=== PATIENT | male | born 1975 | race Caucasian/White ===

== ENCOUNTER 2023-05-19 10:16 | Emergency (ER) | payer OTHER ==
--- NOTE | 2023-05-19 10:21 | ED ---
General Adult HPI - General Chief complaint: Upper Respiratory Infection Stated complaint: SOB, Cough Time Seen by Provider: 05/19/23 10:19 Source: patient, RN notes reviewed Mode of arrival: ambulatory Limitations: no limitations - History of Present Illness Initial comments: This is a 48 year old male who presents to the emergency department for coughi ng, congestion, shortness of breath, fatigue, and headaches. Symptoms started 2 days ago. He is currently at [facility] for cocaine abuse. He states "I feel like there is fluid on my lungs". Denies any hx of asthma or COPD. - Related Data Home Medications Medication Instructions Recorded Confirmed Acetaminophen Tab [Tylenol] 650 mg PO Q4H PRN 05/19/23 05/19/23 Calcium/Magnesium/Zinc/Vitamin D 1 tab PO TID PRN 05/19/23 05/19/23 Chlorpheniramine Maleate 4 mg PO Q4H PRN 05/19/23 05/19/23 [Chlor-Trimeton] Ibuprofen [Motrin Ib] 600 mg PO Q6H PRN 05/19/23 05/19/23 Multivitamins, Thera [Multivitamin 1 tab PO DAILY 05/19/23 05/19/23 (formulary)] Thiamine [Vitamin B-1] 100 mg PO DAILY 05/19/23 05/19/23 guaiFENesin SYRUP 100MG/5ML 200 mg PO Q4HR PRN 05/19/23 05/19/23 [Robitussin] ondansetron HCL [Ondansetron HCl] 8 mg PO Q6H PRN 05/19/23 05/19/23 Previous Rx's Medication Instructions Recorded Albuterol Sulfate [Albuterol 1 - 2 puff PO Q4-6H PRN #8.5 gm 05/19/23 Sulfate Hfa] Benzonatate [Tessalon Perle] 200 mg PO TID PRN #30 capsule 05/19/23 Allergies Allergy/AdvReac Type Severity Reaction Status Date / Time No Known Allergies Allergy Verified 05/19/23 12:07 Review of Systems ROS Statement: Those systems with pertinent positive or pertinent negative responses have been documented in the HPI. ROS Other: All systems not noted in ROS Statement are negative. General Exam Limitations: no limitations General appearance: alert, in no apparent distress Head exam: Present: atraumatic, normocephalic, normal inspection Respiratory exam: Present: normal lung sounds bilaterally. Absent: respiratory distress, wheezes, rales, rhonchi, stridor Cardiovascular Exam: Present: regular rate, normal rhythm, normal heart sounds. Absent: systolic murmur, diastolic murmur, rubs, gallop, clicks Neurological exam: Present: alert, oriented X3, CN II-XII intact Psychiatric exam: Present: normal affect, normal mood Skin exam: Present: warm, dry, intact, normal color. Absent: rash Course Vital Signs 05/19/23 05/19/23 10:21 13:52 Temperature 99.6 F 98.8 F Pulse Rate 64 70 Respiratory 18 20 Rate Blood Pressure 123/81 111/75 O2 Sat by Pulse 98 97 Oximetry Medical Decision Making - Medical Decision Making This is a 48 year old male who presents to the emergency department for coughing and congestion. Was pt. sent in by a medical professional or institution? @ -No Did you speak to anyone other than the patient for history? @ -No Did you review nursing and triage notes? @ -Yes, and I agree, it is accurate with regards to the patient's symptoms. Were old charts reviewed? @ -No Differential Diagnosis? @ -Differential Cough: Influenza, Covid, RSV, croup, allergic rhinitis, GERD, pneumonia, bronchitis, COPD, viral pharyngitis, streptococcal pharyngitis, this is not meant to be an all-inclusive list. EKG interpreted by me (3pts min.)? @ -Not obtained X-rays interpreted by me (1pt min.)? @ -Chest x-ray obtained, my interpretation identifies no localized consolidations or infiltrates. CT interpreted by me (1pt min.)? @ -Not obtained U/S interpreted by me (1pt. min.)? @ -Not obtained What testing was considered but not performed? (CT, X-rays, U/S, labs)? Why? @ -None What meds were considered but not given? Why? @ -None Did you discuss the management of the patient with other professionals? @ -No Did you reconcile home meds? @ -No Was smoking cessation discussed for >3mins.? @ -I discussed smoking cessation for greater than 3 minutes. The risk of smoking were discussed with the patient including but not limited to risks of cancer, stroke, coronary artery disease and COPD. Also discussed with patient were multiple methods of quitting smoking. Lastly we discussed the financial cost of smoking. Was critical care preformed (if so, how long)? @ -No Were there social determinants of health that impacted care today? How? (Homel essness, low income, unemployed, alcoholism, drug addiction, transportation, low edu. Level, literacy, decrease access to med. care, intermediate, rehab)? @ -Rehab, where he is around other sick individuals, exposing him to illness. Was there de-escalation of care discussed even if they declined? (Discuss DNR or withdrawal of care, Hospice)? @ -No What co-morbidities impacted this encounter? (DM, HTN, Smoking, COPD, CAD, Cancer, CVA, Hep., AIDS, mental health diagnosis, sleep apnea, morbid obesity)? @ -Smoking, drug addiction Was patient admitted / discharged? @ -Discharged. Patient positive for influenza A. COVID and RSV testing were negative. Chest x-ray reveals no acute process. His temperature was mildly elevated in the emergency department he was given ibuprofen and Tylenol. Tessalon Perles administered for the coughing. Prescription for Tessalon Perles and albuterol inhaler provided with dosing instructions reviewed. Advised ibuprofen and Tylenol as needed for any additional headaches and fevers. Also advised drinking plenty of fluids and getting lots of rest. Patient discharged back to [facility] in stable condition. Undiagnosed new problem with uncertain prognosis? @ -None Drug Therapy requiring intensive monitoring for toxicity (Heparin, Nitro, Insulin, Cardizem)? @ -None Were any procedures done? @ -None Diagnosis/symptom? @ -Influenza Acute, or Chronic, or Acute on Chronic? @ -Acute Uncomplicated (without systemic symptoms) or Complicated (systemic symptoms)? @ -Uncomplicated Side effects of treatment? @ -None Exacerbation, Progression, or Severe Exacerbation] @ -Not applicable Poses a threat to life or bodily function? @ -No Return precautions reviewed in depth, the patient is instructed to return to the emergency department with any new, worsening, or concerning symptoms. Patient verbalized understanding. This case was discussed in detail with the attending ED physician, Dr. Hawthorne. Presentation, findings, and treatment plan discussed in detail as well. - Lab Data Lab Results 05/19/23 Range/Units 10:27 Influenza Type A (PCR) Detected A (Not Detectd) Influenza Type B (PCR) Not Detected (Not Detectd) RSV (PCR) Not Detected (Not Detectd) SARS-CoV-2 (PCR) Not Detected (Not Detectd) - Radiology Data Radiology results: report reviewed, image reviewed Disposition Clinical Impression: Influenza A Disposition: HOME SELF-CARE Instructions (If sedation given, give patient instructions): Influenza (ED) Additional Instructions: Return to the emergency department with any new, worsening, or concerning symptoms. You can take the Tessalon Perles up to every 8 hours as needed for coughing. You can use the albuterol inhaler every 4-6 hours as needed for shortness of breath. Alternate with ibuprofen and Tylenol as needed for any additional fevers or headaches. Follow up with your primary care provider in 1- 2 days. Prescriptions: Albuterol Sulfate [Albuterol Sulfate Hfa] 1 - 2 puff PO Q4-6H PRN #8.5 gm PRN Reason: Shortness Of Breath Benzonatate [Tessalon Perle] 200 mg PO TID PRN #30 capsule PRN Reason: Cough Is patient prescribed a controlled substance at d/c from ED?: No Referrals: None,Stated [Primary Care Provider] - 1-2 days Time of Disposition: 12:38
[2023-05-19] MEDS: BENZONATATE 100 MG CAP PO STA (11:40)
[2023-05-19] MEDS: IBUPROFEN 800 MG TAB PO STA (11:40)
[2023-05-19] MEDS: ACETAMINOPHEN TAB 500 MG TAB PO STA (11:40)
--- NOTE | 2023-05-19 12:16 | XR ---
EXAMINATION TYPE: XR chest 2V DATE OF EXAM: 05/19/2023 11:38 AM CLINICAL INDICATION:Male, 48 years old with history of Cough; [facility] COMPARISON: None TECHNIQUE: XR chest 2V Frontal and lateral views of the chest. FINDINGS: Lungs/Pleura: There is no evidence of pleural effusion, focal consolidation, or pneumothorax. Pulmonary vascularity: Unremarkable. Heart/mediastinum: Cardiomediastinal silhouette is unremarkable. Musculoskeletal: No acute osseous pathology. IMPRESSION: 1. No acute cardiopulmonary disease process. 2. COPD changes.
[2023-05-19 14:03] VITALS: BP 111/75; PULSE 70; RESP 20; TEMP 98.8
== END 2023-05-19 13:52 | disposition home or self-care (01) ==
LOC: EC 10:16
DX: J10.1 Influenza due to other identified influenza virus with other respiratory manifestations (principal); J44.9 Chronic obstructive pulmonary disease, unspecified; Z20.822 Contact with and (suspected) exposure to COVID-19
CPT/HCPCS: 71046; 87636; 99285; 99406